=== PATIENT | male | born 1930 | race Caucasian/White ===

== ENCOUNTER → 2016-06-25 11:59 | Outpatient (CLI) | payer MEDICARE, OTHER ==
[2010-11-30 11:23] VITALS: BMI 27.0
[~2016-06-25 11:59] MED LIST: BAYER CHEWABLE81 MG PO; METOPROLOL TART25 MG PO; PLAVIX75 MG PO; ZOCOR80 MG PO
[2016-07-03 18:17] VITALS: BMI 27.3
== END | disposition home or self-care (01) ==
LOC: D.US 11:59
DX: I65.21 Occlusion and stenosis of right carotid artery (principal)

== ENCOUNTER → 2016-06-28 08:53 | Outpatient (CLI) | payer MEDICARE, OTHER ==
[2010-11-30 11:23] VITALS: BMI 27.0
[2016-07-03 18:17] VITALS: BMI 27.3
== END | disposition home or self-care (01) ==
LOC: D.CT 08:53
DX: I65.23 Occlusion and stenosis of bilateral carotid arteries (principal)

== ENCOUNTER 2016-07-03 10:40 | Inpatient (IN) | payer MEDICARE, OTHER ==
[~2016-07-03] VITALS: Ht 167.6 cm; Wt 76.8 kg
[2016-07-03] VITALS (14 sets, daily range): BP systolic 123–167; BP diastolic 42–80; Ht 167.6 cm; Wt 76.8 kg
--- NOTE | ~2016-07-03 | HEMODYNAMI ---
PATIENT:QUENTIN ALVAREZ MEDICAL RECORD: [id number] : 34 LOCATION:[facility] ADMISSION DATE: 07/03/16 Generatedon:07/03/201615:07 Patient name: QEUNTIN ALVAREZ Patient #: [id number] SSN: : 1 06/29/1929 Date of study: 07/03/2016 Page: Of Hemodynamic Procedure Report Patient Data Patient Demographics Procedure consent was obtained First Name: QUENTIN Gender: Male Last Name: ANTONIO : 1930 [facility] Initial: CARA Age: 86 year(s) Patient #: [id number] Race: Unknown Additional ID: [id number] Contact details Address: [address] [place] [address] State: [place] City: [place] Zip code: [address] Past Medical History Allergies Allergen Reaction Date Comments Reported Morphine 07/03/2016 Admission Admission Data Admission Date: 07/03/2016 Admission Time: 10:40 Height (in.): 66 BSA: 1.82 (m2) Height (cm.): 167.64 BMI: 25.82 (kg/m2) Weight (lbs.): 160 Weight (kg.): 72.57 Procedure Procedure Types Cath Procedure Peripheral Cath Diagnostic Procedure Cath Peripheral Peripheral vascular Intervention Stent Carotid Stent Procedure Description Procedure Date Procedure Date: 07/03/2016 Procedure Start Time: 13:38 Procedure Staff Name Function Mauro Fry MD Performing Physician Golden Carrasco RT Scrub Ester Martinez RN Nurse Indigo Sepulveda RT Tissue Rewinder Indigo Sepulveda RT Monitor Zion Verdugo MD Performing Physician Procedure Data Cath Procedure Fluoroscopy Diagnostic fluoroscopy Total fluoroscopy Time: time: 21.2 min 21.2 min Diagnostic fluoroscopy Total fluoroscopy dose: dose: 1325.47 mGy 1325.47 mGy Contrast Material Contrast Material Type Amount (ml) Isovue 300 105 Entry Location Entry Primary Successful Side Size Upsize Upsize Entry Closure Succ essful Closure Location (Fr) 1 (Fr) 2 (Fr) Remarks Device Remarks Femoral Right Angio-VIP artery 6Fr Diagnostic catheters Device Type Used For End Catheter Placement Cordis Aqua 5Fr Whitaker Aortic Root 125cm catheter Angiography Merit ULTRA BOLUS FLUSH 5Fr 90CM catheter Procedure Medications Medication Administration Route Dosage Oxygen NC 3 l/min Heparin Flush Bag added to field 4 bags (1000units/500ml NS) Lidocaine 1% added to field 20 Fentanyl I.V. 50 mcg Versed I.V. 1 mg Versed I.V. 0.5 mg Fentanyl I.V. 25 mcg Heparin Bolus I.V. 5000 units Benadryl I.V. 50 mg Fentanyl I.V. 25 mcg Hemodynamics Rest BSA: 1.82 (m2) O2 Consumption: Estimated: 192.33 (ml/min) O2 Consumption indexed : Estimated:105.68 (ml/min/m) Heart Rate: 49 (bpm) Snapshots Pre Cath Intra NCS Post Cath Vital Signs Time Heart Resp SPO2 NIBP (mmHg) Rhythm Pain Sedation Rate (ipm) (%) Status Level (bpm) 13:13:43 60 24 91 192/77(92) NSR 0 (11) 10(A) , No pain 13:18:15 60 23 97 193/80(119) NSR 0 (11) 10(A) , No pain 13:22:48 61 23 98 193/77(108) NSR 0 (11) 10(A) , No pain 13:27:04 60 17 97 164/72(141) NSR 0 (11) 10(A) , No pain 13:31:28 60 18 95 173/69(97) NSR 0 (11) 10(A) , No pain 13:35:52 61 14 93 186/77(144) NSR 0 (11) 10(A) , No pain 13:40:25 59 14 94 189/72(102) NSR 0 (11) 9(A) , No pain 13:44:57 59 13 98 176/75(108) NSR 0 (11) 9(A) , No pain 13:49:56 78 15 99 Measuring NSR 0 (11) 9(A) , No pain 13:51:20 71 13 96 Time NSR 0 (11) 9(A) Exceeded , No pain 13:52:59 64 12 97 176/72(118) NSR 0 (11) 9(A) , No pain 13:57:27 60 14 98 172/68(94) NSR 0 (11) 10(A) , No pain 14:01:55 59 10 96 172/68(103) NSR 0 (11) 9(A) , No pain 14:06:34 60 11 98 153/43(104) NSR 0 (11) 9(A) , No pain 14:11:33 62 15 Measuring NSR 0 (11) 9(A) , No pain 14:12:47 62 16 176/71(132) NSR 0 (11) 10(A) , No pain 14:17:15 60 12 96 191/77(106) NSR 0 (11) 9(A) , No pain 14:21:52 59 13 94 180/68(161) NSR 0 (11) 9(A) , No pain 14:26:50 59 13 95 Measuring NSR 0 (11) 9(A) , No pain 14:27:07 59 13 95 175/72(97) NSR 0 (11) 9(A) , No pain 14:31:35 60 12 96 177/75(102) NSR 0 (11) 9(A) , No pain 14:36:06 59 12 96 178/69(109) NSR 0 (11) 9(A) , No pain 14:40:34 60 12 96 174/69(117) NSR 0 (11) 9(A) , No pain 14:45:00 61 14 95 188/74(113) NSR 0 (11) 10(A) , No pain 14:49:59 70 20 94 Measuring NSR 0 (11) 9(A) , No pain 14:51:05 60 14 100 Out of NSR 0 (11) 9(A) range , No pain 14:55:35 59 10 96 202/81(113) NSR 0 (11) 9(A) , No pain 15:00:06 59 12 94 195/82(104) NSR 0 (11) 9(A) , No pain 15:04:05 No Cuff NSR 0 (11) 9(A) , No pain Medications Time Medication Route Dose Verified Delivered Reason Notes Effectiveness by by 13:23:05 Oxygen NC 3 Ester Ester Per protocol l/min King FRANSISCO Martinez RN 13:23:30 Heparin Flush added 4 Ester Ester used for Bag to bags Juan RN Juan crm architect (1000units/500ml field NS) 13:23:43 Lidocaine 1% added 20ml Ester Ester for local to vial King FRANSISCO Martinez RN anesthetic field 13:31:22 Fentanyl I.V. 50 Ester Ester headache mcg King FRANSISCO Martinez RN 13:38:15 Versed I.V. 1 mg Ester Ester for sedation King FRANSISCO Martinez RN 13:59:58 Versed I.V. 0.5 Ester Ester for sedation mg King FRANSISCO Martinez RN 14:00:04 Fentanyl I.V. 25 Ester Ester for sedation mcg King FRANSISCO Martinez RN 14:02:44 Heparin Bolus I.V. 5000 Ester Ester for units King FRANSISCO Martinez RN anticoagulation 14:14:38 Benadryl I.V. 50 mg Ester Ester for sedation King FRANSISCO Martinez RN 14:48:17 Fentanyl I.V. 25 Ester Ester sedation mcg King FRANSISCO Martinez nylon mender Log Time Note 12:24:09 Patient Weight : 160 lbs 12:24:15 Patient Height : 66 inches 12:25:24 [address] Verdugo and Dr Fry talked at length with patient and in room 2509. Risks and benefits of procedure discussed. 12:37:33 Use device set IR Diagnostic 12:38:24 TUBING, CONTRAST INJCTN HI PRES opened to sterile field. 12:38:25 Terumo TORQUE DEVICE PLASTIC .038 opened to sterile field. 12:38:26 Terumo ANGLE 260cm glide wire opened to sterile field. 12:38:27 Faizan LOPEZ 260 guide wire opened to sterile field. 12:38:28 Faizan JULIENSON 145cm guide wire opened to sterile field. 12:38:29 [place] Sci Choice PT Floppy Straight 300cm 0.014 g opened to sterile field. 12:38:29 St Percy 5FR Sheath opened to sterile field. 12:38:30 Micropuncture VSI 4FR kit opened to sterile field. 12:38:31 Sterile Angiographic Pack opened to sterile field. 12:38:32 Bag Decanter opened to sterile field. 12:38:33 Acist Manifold opened to sterile field. 12:38:34 Acist Hand Control opened to sterile field. 12:38:35 Acist Syringe opened to sterile field. 12:42:35 Copilot Bleedback Control Valve opened to sterile field. 12:42:36 Cook RAABE 6FR. 90cm guide sheath opened to sterile field. 12:42:38 - 13:08:08 Time tracking: Regular hours 13:08:28 Plan of Care:Hemodynamics will remain stable., Cardiac rhythm will remain stable., Comfort level will be maintained., Respiratory function will remain adequate., Patient/ family verbilizes understanding of procedure., Procedure tolerated without complication., Recovers from procedure without complications.. 13:08:46 Patient received from Outpatients to IR Alert and oriented. Tansferred to table in Supine position. 13:08:49 Correct patient and procedure confirmed by team. 13:08:50 Signed procedure consent form obtained from patient. 13:08:53 - 13:09:00 H&P Date Dictated: 07/03/2016 Within 30 days and on chart.. 13:09:01 Pre-procedure instructions explained to patient. 13:09:02 Pre-op teaching completed and patient verbalized understanding. 13:09:03 Family in waiting room. 13:09:06 Patient NPO since Midnight. 13:09:45 Patient allergic to Morphine 13:09:49 Is the patient allergic to Iodine/contrast media? No. 13:09:52 Is patient on blood thinner?Yes 13:09:58 ACC The patient was administered the following blood thiners : ACCAspirin, ACCPlavix 13:10:33 Patient diabetic? No. 13:10:41 - 13:10:42 ----Pre-sedation anethsthesia assessment.---- 13:10:46 Previous problem with sedation/anesthesia? No ? 13:10:49 Snore? Yes 13:10:51 Sleep apnea? No 13:10:53 Deviated septum? No 13:10:55 Opens mouth fully? Yes 13:10:57 Sticks out tongue? Yes 13:11:22 Airway obstruction? No but has pacemaker ...cad 13:11:28 Dentures? Yes out 13:11:31 - 13:11:39 Pre procedure: right dorsailis pedis pulse Doppler 13:11:44 Pre procedure: right posterior tibial pulse Doppler 13:11:48 Pre procedure: left dorsailis pedis pulse Doppler 13:11:52 Pre procedure: left posterior tibial pulse Doppler 13:12:11 IV patent on arrival in right wrist with 0.9% NaCl at [facility]. 13:12:13 - 13:12:17 ECG and BP/O2 sat monitors applied to patient. 13:12:19 Vital chart was started 13:12:37 Baseline sample Acquired. 13:12:41 Full Disclosure recording started 13:12:43 - 13:12:53 Right groin area was prepped with chlora-prep and draped in sterile fashion 13:12:58 Alarms reviewed by Roxana N. 13:12:59 Sharps counted by scrub and verified by RMichelleN. 13:12:59 - 13:23:05 Oxygen 3 l/min NC was given by Ester Martinez RN; Per protocol; 13:23:30 Heparin Flush Bag (1000units/500ml NS) 4 bags added to field was given by Ester Martinez RN; used for procedure; 13:23:43 Lidocaine 1% 20ml vial added to field was given by Ester Martinez RN; for local anesthetic; 13:31:22 Fentanyl 50 mcg I.V. was given by Ester Martinez RN; headache; 13:33:58 A Cordis Aqua 5Fr Whitaker 125cm catheter was advanced over the wire and used . 13:34:27 Physician arrived 13:35:06 --------ALL STOP TIME OUT------ 13:35:07 Final Timeout: patient, procedure, and site verified with staff and physician. All members of the team are in agreement. 13:35:22 Physical assessment completed. ASA score P 3 - A patient with severe systemic disease as per Zion Verdugo MD. 13:35:28 Sedation plan: IV Moderate Sedation Versed, Fentanyl 13:38:00 Procedure started. 13:38:05 Local anesthetic to right femoral artery with Lidocaine 1% by Zion Verdugo MD.INITIAL ACCESS ONLY 13:38:15 Versed 1 mg I.V. was given by Ester Martinez RN; for sedation; 13:44:03 [place] Sci Amplatz Super Stiff 75CM guide wire opened to sterile field. 13:45:59 A Merit ULTRA BOLUS FLUSH 5Fr 90CM catheter was advanced over the wire and used for . 13:58:45 AcelRx Pharmaceuticals [facility] 260 .035 glide wire opened to sterile field. 13:59:14 [place] Sci AMPLATZ 260CM SHORT TAPER guide wire opened to sterile field . 13:59:58 Versed 0.5 mg I.V. was given by Ester Martinez RN; for sedation; 14:00:04 Fentanyl 25 mcg I.V. was given by Ester Martinez RN; for sedation; 14:02:44 Heparin Bolus 5000 units I.V. was given by Ester Martinez RN; for anticoagulation; 14:06:09 CXI Catheter 90cm opened to sterile field. 14:14:38 Benadryl 50 mg I.V. was given by Ester Martinez RN; for sedation; 14:16:56 SPIDER EMBOLIC PROTECTION DEVICE 5MM opened to sterile field. 14:21:14 Inflation number: 1 A Dowd VIATRAC 4 x 2 x 135 balloon was prepped an d advanced across the Undefined1, then inflated to 10 CATHLEEN for 0:06 (min:sec). 14:21:42 Inflation number: 2 The Dowd VIATRAC 4 x 2 x 135 balloon was reinflated across the Undefined1, to 8 CATHLEEN for 0:10 (min:sec). 14:25:28 PROTEGE RX TAPERED 8-6MM X 30MM X 135CM stent was deployed across Undefined1 . 14:36:10 Inflation number: 3 A Dowd VIATRAC 6 x 4 x 135 balloon was prepped an d advanced across the Undefined1, then inflated to 11 CATHLEEN for 0:11 (min:sec). 14:38:36 PROTEGE 8 x 30 x 135 Stent was deployed across Undefined2 . 14:40:20 Inflation number: 1 A Dowd VIATRAC 7 x 4 x 135 balloon was prepped an d advanced across the Undefined2, then inflated to 10 CATHLEEN for 0:23 (min:sec). 14:48:17 Fentanyl 25 mcg I.V. was given by Ester Martinez RN; sedation; 14:49:40 ANGIOSEAL-VIP PLUS 6 FR opened to sterile field. 14:49:54 A sheath was inserted into the Right Femoral artery 14:49:54 Sheath removed intact; hemostasis achieved with Angio-VIP 6Fr to the Right Femoral artery. 14:49:59 Procedure ended.(Physican Out) 14:50:17 Fluoroscopy time 21.20 minutes. 14:50:28 Fluoroscopy dose: 1325.47 mGy 14:50:28 Flurop Dose total: 1325.47 14:50:33 Contrast amount:Isovue 300 105ml. 14:50:35 Sharps counted by scrub and verified by R.N. 14:50:38 Procedure and supply charges have been captured, reviewed, submitted an d are correct. 15:07:21 PERRLA, following all instructions appropriately, store keeper equal and strong, moving all four extremities to command, no facial droop, tongue midline. No neuro deficits at this time. 15:07:48 Vital chart was stopped Intervention Summary Intervention Notes Time ActionType Lesion and Equipment Action# Pressure Duration Attributes Used 14:21:14 Inflate Undefined1 Dowd 1 10 00:06 balloon VIATRAC 4 x 2 x 135 balloon 14:21:42 Reinflate Undefined1 Dowd 2 8 00:10 balloon VIATRAC 4 x 2 x 135 balloon 14:25:28 Deploy self Undefined1 PROTEGE 1 expanding RX stent TAPERED 8-6MM X 30MM X 135CM stent 14:36:10 Inflate Undefined1 Dowd 3 11 00:11 balloon VIATRAC 6 x 4 x 135 balloon 14:38:36 Deploy self Undefined2 PROTEGE 8 1 expanding x 30 x stent 135 Stent 14:40:20 Inflate Undefined2 Dowd 1 10 00:23 balloon VIATRAC 7 x 4 x 135 balloon Device Usage Item Name Manufacture Quantity Catalog Number Hospital Part Current M inimal Lot# / Charge Number Stock Stock Serial# Code TUBING, Merit 1 [id number] [id number] 5 CONTRAST Medical INJCTN HI PRES Terumo TORQUE [place] 1 [id number] 386994 549948 5 DEVICE Scientific PLASTIC .038 Terumo ANGLE Terumo 1 [id number] 869700 745468 642575 5 260cm glide wire Cook [facility] Medical 1 [id number] 159821 738175 5 [id number] [address] [facility] Medical 1 [id number] 743475 821208 [id number] guide wire [address] [facility] 5FR [facility] 1 275282 761447 399107 5 [id number] Sheath Micropuncture VSI VASCULAR 1 [id number] 459557 799058 5 VSI 4FR kit SOLUTIONS Sterile Cardinal 1 [id number] 916905 711347 5 Angiographic Health Pack Bag Decanter Microtek 1 2001S 779488 52819 434109 5 Medical Inc. Acist Acist 1 69976 685681 226418 067263 5 Zigswitch Systems Inc Acist Hand Acist 1 42396 957821 754065 361715 5 Control Wazzap Systems Inc Acist Syringe Acist 1 89617 512769 635203 228847 2 0 Wazzap Systems Inc Copilot Dowd 1 [id number] 097626 210315 661431 5 Bleedback Vascular Control Valve AcelRx Pharmaceuticals HELDER AcelRx Pharmaceuticals [facility] 1 [id number] 997682 620109 5 6FR. 90cm guide sheath [place] [facility] [place] 1 [id number] 905863 110658 444288 5 Choice PT Scientific Floppy Straight 300cm 0.014 g Cordis Aqua Cardinal 1 [id number] 718073 917227 653885 5 5Fr [facility] 125cm catheter [place] [facility] [place] 1 [id number] 653361 480779 097223 5 Amplatz Super Scientific Stiff 75CM guide wire Merit ULTRA Merit 1 [id number] 194998 792977 5 BOLUS FLUSH Medical 5Fr 90CM catheter Slyce [facility] 1 Z84088 994365 360068 5 [id number] ROADRUNNER 260 .035 glide wire [place] [facility] [place] 1 [id number] 671781 748984 253693 5 AMPLATZ 260CM Scientific SHORT TAPER guide wire CXI Catheter [facility] 1 [id number] 006877 810335 001994 5 [id number] 90cm SPIDER [facility] 1 [id number] 752467 546751 5 EMBOLIC PROTECTION DEVICE 5MM Dowd Dowd 1 [id number] 205346 275858 012938 5 VIATRAC 4 x 2 Vascular x 135 balloon PROTEGE RX Ev3 1 [id number] 643367 663576 484997 5 [id number] TAPERED 8-6MM X 30MM X 135CM stent Dowd Dowd 1 6061179-70 238305 041871 777390 5 VIATRAC 6 x 4 Vascular x 135 balloon PROTEGE 8 x Ev3 1 [id number] 256148 397111 594501 5 [id number] 30 x 135 Stent Dowd Dowd 1 [id number] 317165 117884 060491 5 VIATRAC 7 x 4 Vascular x [address]IO[address]-VIP [facility] 1 [id number] 908544 006838 5 PLUS 6 FR Signature Audit [place] Stage Time Signature Unsigned Intra-Procedure 07/03/2016 Indigo Sepulveda 3:07:44 PM RT(R) Signatures Monitor : Indigo Sepulveda RT Signature : Date : Time : [facility] [address] [place] [address]
[2016-07-03] MEDS ORDERED: PLAVIX75 MG PO (11:22)
[2016-07-03] MEDS ORDERED: BAYER CHEWABLE81 MG PO (11:23)
[2016-07-03] MEDS ORDERED: ZOCOR80 MG PO (11:24)
[2016-07-03] MEDS ORDERED: METOPROLOL TART25 MG PO (11:24)
[2016-07-03 12:25] LABS: BASOPHILS 0.5 % (0.0-2.0); EOSINOPHILS 2.6 % (0-7); HEMATOCRIT 41.2 % (42.0-54.0); IMMATURE GRANULOCYTES 0.1 % (0-5); LYMPHOCYTES 25.2 % (15-50); MCH 32.9 pg (26.0-34.0); MCV 96.9 fL (80.0-100.0); MEAN PLATELET VOLUME 9.7 fL (7.4-10.4); MONOCYTES 7.7 % (2-11); NEUTROPHILS 63.9 % (40-80); PLATELET COUNT 202 10x3/uL (130-400); RBC 4.25 10x6/uL (4.20-6.10); RDW 13.3 % (11.5-14.5); WBC 7.4 10x3/uL (4.8-10.8)
[2016-07-03 12:37] LABS: APTT 32.4 SECONDS (22.8-39.4); INR 1.1 (0.85-1.17); PROTIME 14.1 SECONDS (11.6-15.0)
[2016-07-03 12:55] LABS: CALC OSMOLALITY 284 mosm/kg (275-300); CALCIUM 8.9 mg/dL (8.5-10.1); CARBON DIOXIDE 28.8 mmol/L (21.0-32.0); CHLORIDE - SERUM 104 mmol/L (98-107); CREATININE - SERUM 0.9 mg/dL (0.6-1.3); GLUCOSE 113 mg/dL (74-106); POTASSIUM - SERUM 4.2 mmol/L (3.5-5.1); SODIUM 142 mmol/L (136-145); UREA NITROGEN 16 mg/dL (7-18); eGFR NON AFRICAN AMERICAN 85 mL/min (90-120)
--- NOTE | 2016-07-03 15:38 | NUR ---
PT ARRIVED TO ROOM ALERT AND CONVERSANT. PUPILS EQUAL AND REACTIVE 2MM. RIGHT GROIN ENTRY SITE NO EVIDENCE OF BLEEDING OR BRUISING. DRESSING IS CLEAN, DRY AND INTACT. POSTERIOR AND PEDAL PULSES WEAK, BUT PALPABLE. PT PLACED ON 2L NC FOR LOW 90'S SATURATION.
--- NOTE | 2016-07-03 16:56 | NUR ---
PT BP ELEVATED TO 170'S SYSTOLIC. NO MED ORDERS FOR PRN. SPOKE WITH DR DELATORRE. PT HAS HOME MEDICATION OF METOPROLOL 25MG BID. ASKED IF COULD GIVE A DOSE. AGREED. LET HIM KNOW PT HAD ORDERS FOR METOPROLOL 25MG XR TO START IN AM. WANTS FOR PT TO CONTINUE TO GET SAME DOSING HOME DOSING AND ASKED FOR XR VERSION TO BE DC'D.
--- NOTE | 2016-07-03 18:02 | NUR ---
AND SON AT BEDSIDE. PT AWAKE. EATEN DINNER. RIGHT GROIN SITE DRESSING INTACT. NO EVIDENCE OF BLEEDING OR HEMATOMA. ICE PACK REMOVED PER PT REQUEST FOR A BREAK FROM IT.
--- NOTE | 2016-07-03 19:30 | NUR ---
Received patient resting in bed with eyes closed, assessment completed per flowsheet. Patient is AO x4, demeanor is pleasant. eyes PERRLA @ 3mm with brisk response, sclera is white. Oral/Nasal mucosa is moist and intact, O2 sat 96% on room air. S1/S2 noted with pacemaker noted, regular pacing on telemetry. Lung sounds clear bilateral upper with slightly diminished lower, breathing is even and effortless. Abdomen is soft and non-tender to palpation, bowel sounds Active x4. Voids using urinal with 175ml clear yellow urine noted. Dressing R groin CDI, patient states slight tenderness with no swelling or bleeding noted. Full ROM all extremities with all pulses palpable, Station Manager/Pedal strength equal and bilateral. 20g PIV R Forearm noted, patent with fluids infusing. Patient denies pain or other needs at this time, all VSS and will continue to monitor.
--- NOTE | 2016-07-03 21:00 | NUR ---
No visitors at this time, patient resting in bed with eyes closed breathing is even and unlabored. HR 61 with continuous pacing noted on telemetry, oxygen sat 94% on room air. R Groin dressing CDI, no bleeding noted. Patient denies pain or other needs at this time, all VSS and will continue to monitor.
--- NOTE | 2016-07-03 22:51 | NUR ---
Reassessment complete per flowsheet, patient resting in bed with eyes closed. Breathing is even and unlabored, O2 sat 94% on room air. S1/S2 noted with constant pacing on telemetry, HR 60. No bleeding or swelling noted at cath site, dressing CDI. IV fluids completed, R forearm IV saline locked. No further needs at this time, all VSS and will continue to monitor.
--- NOTE | 2016-07-03 23:00 | NUR ---
Patient resting in bed with eyes closed, breathing is even and unlabored with O2 sat 94% on room air. No further needs at this time, all VSS and darin continue to monitor.
[2016-07-04] VITALS (7 sets, daily range): BP systolic 116–132; BP diastolic 37–51
--- NOTE | 2016-07-04 00:56 | NUR ---
Patient resting in bed with eyes open, breathing is even and effortless. O2 sensor and leads reconnected, no further needs at this time. All VSS and will continue to monitor.
--- NOTE | 2016-07-04 02:43 | NUR ---
Reassessment completed per flowsheet, patient resting in bed with eyes closed. HR 60 with constant pacing on telemetry, S1/S2 noted. Breathing is even and unlabored, O2 sat 94% on room air. R groin dressing CDI, no swelling or bleeding noted. No further needs at this time, all VSS and will continue to monitor.
--- NOTE | 2016-07-04 05:06 | NUR ---
Patient resting in bed with eyes open watching TV. Provided water and blanket at patient request, no further needs at this time. All VSS and will continue to monitor.
--- NOTE | 2016-07-04 07:00 | NUR ---
SHIFT REPORT RECEIVED. ASSUMED CARE OF PATIENT. ASSESSMENT COMPLETE. SEE FLOW SHEET FOR FINDINGS. PT AWAKE AND CONVERSANT AT THIS TIME. ASKS FOR CUP OF COFFEE. DENIES ANY OTHER NEEDS AT THIS TIME. RIGHT GROIN DRESSING INTACT. IV SALINE LOCKED.
[2016-07-04 08:03] LABS: BASOPHILS 0.5 % (0.0-2.0); EOSINOPHILS 1.3 % (0-7); HEMATOCRIT 41.4 % (42.0-54.0); HEMOGLOBIN 13.9 g/dL (13.5-17.5); IMMATURE GRANULOCYTES 0.2 % (0-5); MCH 33.2 pg (26.0-34.0); MCHC 33.6 g/dL (31.0-37.0); MCV 98.8 fL (80.0-100.0); MEAN PLATELET VOLUME 9.4 fL (7.4-10.4); MONOCYTES 6.6 % (2-11); NEUTROPHILS 73.4 % (40-80); PLATELET COUNT 192 10x3/uL (130-400); RBC 4.19 10x6/uL (4.20-6.10); RDW 13.5 % (11.5-14.5)
[2016-07-04 08:20] LABS: WBC 9.6 10x3/uL (4.8-10.8)
[2016-07-04 08:21] LABS: ALBUMIN 3.7 g/dL (3.4-5.0); ALKALINE PHOSPHATASE 51 U/L (46-116); ALT (SGPT) 29 U/L (10-68); BILIRUBIN - TOTAL 0.69 mg/dL (0.2-1.3); CALC OSMOLALITY 288 mosm/kg (275-300); CARBON DIOXIDE 32.6 mmol/L (21.0-32.0); CHLORIDE - SERUM 103 mmol/L (98-107); CREATININE - SERUM 0.9 mg/dL (0.6-1.3); GLUCOSE 193 mg/dL (74-106); POTASSIUM - SERUM 4.5 mmol/L (3.5-5.1); PROTEIN - SERUM 6.5 g/dL (6.4-8.2); SODIUM 142 mmol/L (136-145); UREA NITROGEN 16 mg/dL (7-18); eGFR NON AFRICAN AMERICAN 85 mL/min (90-120)
--- NOTE | 2016-07-04 09:50 | NUR ---
DISCHARGE INSTRUCTIONS PROVIDED TO PATIENT AND . NO NEW MEDICATIONS. CONTINUE ASA, PLAVIX, METOPROLOL AND ZOCOR. DR TSE OFFICE WILL CALL FOR FOLLOW UP FOR 1 MONTH. MAY SHOWER IN 24 HOURS. IV REMOVED TIP INTACT FROM RIGHT FOREARM.
--- NOTE | 2016-07-04 10:01 | NUR ---
Patient Name: QUENTIN ALVAREZ Admission Status: Elective Accout number: [id number] Admission Date: 07-03-2016 : 1930 Admission Diagnosis: Attending: JONN Current LOS: 1 Anticipated DC Date: 07-04-2016 Planned Disposition: Home Primary Insurance: MEDICARE A & B Is the patient Alert and Oriented? Yes * How many steps to enter\exit or inside your home? none * PCP DR CARO IS PRIMARY CARDS * Pharmacy [facility] ON [address] * Preadmission Environment Home with Family * ADLs Independent * Equipment None * List name and contact numbers for known caregivers / representatives who currently or will assist patient after discharge: KATIE ALVAREZ, SPOUSE, EDU ALVAREZ, SON, * Community resources currently utilized None * Additional services required to return to the preadmission environment? No * Can the patient safely return to the preadmission environment? Yes * Has this patient been hospitalized within the prior 30 days at any hospital? No Discharge Planning Comments: CM SPOKE WITH PATIENT'S SON, EDU, TO ASSESS DC PLAN/NEEDS. HE STATED THAT PATIENT LIVES AT HOME AND IS INDEPENDENT IN HIS CARE/ADL'S. STATED PT AMBULATES WITH NO ASSISTANCE AND THAT PT'S , KATIE ALVAREZ, WILL DRIVE HIM HOME AT D/C. HE STATED HE IS PT IS VERY HEALTHY AND GETS AROUND GREAT. STATED PT HAS NOT USED HH OR REHAB SERVICES AND HE DENIED NEED FOR ANY HH, REHAB SERVICES OR DME AT DISCHARGE. STATED PT'S HOME IS A SAFE PLACE AND PT WILL DC HOME WITH HIS AT DISCHARGE. Biology Specialist: Steph Maya RN,
== END 2016-07-04 10:17 | disposition home or self-care (01) | DRG 36 ==
LOC: D.OPS 10:40 → D.SP 13:30 → D.CVICU 16:01
PROVIDERS: General Practice; ADMIT Radiology Vascular & Interventional Radiology
PROC: 037L3DZ Dilation of Left Internal Carotid Artery with Intraluminal Device, Percutaneous Approach (ICD-10-PCS; principal; 2016-07-03 13:30)
DX: I65.22 Occlusion and stenosis of left carotid artery (principal); I10 Essential (primary) hypertension; I25.10 Atherosclerotic heart disease of native coronary artery without angina pectoris; Z87.891 Personal history of nicotine dependence

== ENCOUNTER → 2016-08-21 12:28 | Outpatient (CLI) | payer MEDICARE, OTHER ==
[2016-07-03 18:17] VITALS: BMI 27.3
== END | disposition home or self-care (01) ==
LOC: D.US 12:28
DX: I65.22 Occlusion and stenosis of left carotid artery (principal)

== ENCOUNTER 2017-03-09 08:24 | Inpatient (IN) | payer MEDICARE, OTHER ==
[~2017-03-09] VITALS: Ht 167.6 cm; Wt 70.5 kg
[2017-03-09 09:05] LABS: BASOPHILS 0.3 % (0-2); EOSINOPHILS 0.4 % (0-7); HEMATOCRIT 42.5 % (42.0-54.0); HEMOGLOBIN 14.3 g/dL (13.5-17.5); IMMATURE GRANULOCYTES 0.3 % (0-5); LYMPHOCYTES 11.7 % (15-50); MCH 31.2 pg (26.0-34.0); MCHC 33.6 g/dL (31.0-37.0); MCV 92.8 fL (80.0-100.0); MEAN PLATELET VOLUME 9.3 fL (7.4-10.4); MONOCYTES 3.7 % (2-11); NEUTROPHILS 83.6 % (40-80); PLATELET COUNT 177 10x3/uL (130-400); RBC 4.58 10x6/uL (4.20-6.10); RDW 14.4 % (11.5-14.5); WBC 11.2 10x3/uL (4.8-10.8)
[2017-03-09 09:14] LABS: APTT 27.7 SECONDS (22.8-39.4); INR 0.96 (0.85-1.17); PROTIME 12.7 SECONDS (11.6-15.0)
[2017-03-09 09:19] LABS: ALBUMIN 3.6 g/dL (3.4-5.0); ALKALINE PHOSPHATASE 72 U/L (46-116); ALT (SGPT) 31 U/L (10-68); BILIRUBIN - TOTAL 0.34 mg/dL (0.2-1.3); CALC OSMOLALITY 289 mosm/kg (275-300); CALCIUM 8.9 mg/dL (8.5-10.1); CARBON DIOXIDE 28.3 mmol/L (21.0-32.0); CHLORIDE - SERUM 107 mmol/L (98-107); CREATININE - SERUM 0.9 mg/dL (0.6-1.3); GLUCOSE 167 mg/dL (74-106); POTASSIUM - SERUM 4.1 mmol/L (3.5-5.1); PROTEIN - SERUM 6.8 g/dL (6.4-8.2); SODIUM 144 mmol/L (136-145); UREA NITROGEN 11 mg/dL (7-18); eGFR NON AFRICAN AMERICAN 85 mL/min (90-120)
--- NOTE | 2017-03-09 10:50 | NUR ---
REPORT REC'D FROM FRANSISCO LEWIS, IN ER. ROOM READY AND AWAITING PT ARRIVAL.
[2017-03-09] MEDS ORDERED: ARICEPT10 MG PO (11:30)
[2017-03-09] MEDS ORDERED: PROSCAR5 MG PO (11:30)
[2017-03-09] MEDS ORDERED: PROTONIX40 MG PO (11:30)
[2017-03-09] MEDS ORDERED: PREDNISONE20 MG PO (11:32)
--- NOTE | 2017-03-09 11:51 | NUR ---
PT REC'D TO ROOM VIA STRETCHER. AAOX4. YOCHA DEHE. SPEECH IS GARBLED/SLURRED, BUT UNDERSTANDLE. HAND JAVASCRIPT APPLICATION DEVELOPER AND FOOT PUMPS STRONG AND EQUAL BILAT. REGULAR HEART RATE AND RHYTHM. L CHEST PM NOTED. LUNG SOUNDS CLEAR AND EQUAL BILAT. BOWEL SOUNDS ACTIVE X4 QUADS. SKIN CDI. PIV TO R WRIST FREE OF REDNESS AND SWELLING. FLUSHED WITH 10CC'S OF NS. AT BEDSIDE. CAROTID DOPPLER BEING DONE NOW WELL. CURRENT VS: BP 201/73 (PRN CLONIDINE ADMINISTERED REC'D 40MG OF LABATELOL IN ER), HR 67, TEMP 97.0, RESP 17. WILL REASSESS BP. BED LOW, CALL LIGHT IN REACH, DENIES NEEDS. CPOC.
--- NOTE | 2017-03-09 12:44 | NUR ---
SPOKE WITH TRISTAN, HOSPITAL ADMINISTRATIVE ASSISTANT. 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 CURRENT BP 140/63. RESTING IN BED, AT BEDSIDE, DENIES NEEDS. CPOC.
--- NOTE | 2017-03-09 15:11 | NUR ---
3RD ATTEMPT TO CONTACT WITH HOME NUMBER. PT IS REQUESTING TO SIGN AMA PAPERS. STATING, "I HAVE AN APPOINTMENT TO GET A SKIN CANCER REMOVED AND IT WAS REALLY HARD TO GET, SO I NEED TO GO AND SIGN THAT PAPER THEY TOLD ME ABOUT IN THE EMERGENCY ROOM." TRIED TO EXPLAIN TO PT THAT HE HAS HAD A STROKE AND THAT HE NEEDS TO PRIORITIZE HIS PROBLEMS. TRIED TO EXPLAIN THAT APPOINTMENTS CAN BE RESCHEDULED, BUT PT SEEMS TO BE CONFUSED TO WHY HE NEEDS TO STAY. ALERT TO PLACE, TIME, SELF, AND SITUATION. PERSUED PT TO STAY BY TELLING HIM TO AT LEAST WAIT UNTIL HIS GET BACK.
[2017-03-09 16:55] VITALS: BP 182/71
--- NOTE | 2017-03-09 18:36 | NUR ---
SPOKE WITH REGARDING PT WANTING TO LEAVE AMA. WAS ABLE TO EXPLAIN TO PT THE NEED TO STAY AND PT IS RESTING IN BED WITH EYES CLOSED. BED LOW, CALL LIGHT IN REACH, CPOC.
[2017-03-09 18:42] VITALS: BP 201/73; Ht 167.6 cm; Wt 70.5 kg
[2017-03-09 22:33] VITALS: BP 167/63
[2017-03-10 01:36] VITALS: BP 159/57
--- NOTE | 2017-03-10 03:00 | NUR ---
PT RESTING QUIETLY, EYES CLOSED. RESP EVEN, UNLABORED. NO DISTRESS NOTED. CONTINUE TRIALS MANAGER'S PLAN OF CARE.
[2017-03-10 05:04] VITALS: BP 110/59
[2017-03-10 09:29] VITALS: BP 148/58
--- NOTE | 2017-03-10 09:30 | NUR ---
ASSESSMENT PER FLOW SHEET.PT WITHOUT DISTRESS.STATES HE WILL DC HOME TODAY. AT BEDSIDE.MONITOR FOR NEEDS
== END 2017-03-10 11:30 | disposition home or self-care (01) | DRG 69 ==
LOC: D.ER 08:24 → D.MS 10:21
PROVIDERS: Emergency Medicine; ADMIT Family Medicine
DX: G45.9 Transient cerebral ischemic attack, unspecified (principal); G81.91 Hemiplegia, unspecified affecting right dominant side; R47.81 Slurred speech; Z95.0 Presence of cardiac pacemaker

== ENCOUNTER 2017-08-19 11:18 | Outpatient (CLI) | payer MEDICARE, OTHER ==
[~2017-08-19] VITALS: Ht 170.2 cm; Wt 68.2 kg
--- NOTE | ~2017-08-19 | HEMODYNAMI ---
PATIENT:QUENTIN ALVAREZ MEDICAL RECORD: [id number] : 34 LOCATION:[facility] ADMISSION DATE: 08/19/17 Generatedon:08/19/201715:40 Patient name: QUENTIN ALVAREZ Patient #: [id number] SSN: : 1 06/29/1929 Date of study: 08/19/2017 Page: Of Hemodynamic Procedure Report Patient Data Patient Demographics Procedure consent was obtained First Name: QUENTIN Gender: Male Last Name: ANTONIO : 1930 [facility] Initial: CARA Age: 87 year(s) Patient #: [id number] Race: Unknown Additional ID: [id number] Contact details Address: [facility] [address] State: [place] City: [place] Zip code: [address] Past Medical History Allergies Allergen Reaction Date Comments Reported Morphine 07/03/2016 Other allergy 08/19/2017 morphine Admission Admission Data Admission Date: 08/19/2017 Admission Time: 11:18 Lab Results Lab Result Date: 08/19/2017 Lab Result Time: 11:45 Biochemistry Name Units Result Min Max BUN mg/dl 11 --(-*--)-- 7 18 Creatinine mg/dl 0.9 --(-*--)-- 0.6 1.3 CBC Name Units Result Min Max Hematocrit % 38 *-(----)-- 42 54 Hemoglobin g/dl 12.6 -*(----)-- 13.5 17.5 Coagulation Name Units Result Min Max INR units 1.13 --(---*)-- 0.85 1.17 PT sec 14.1 --(--*-)-- 11.6 15 Procedure Procedure Types Cath Procedure Diagnostic Procedure PPM/ICD Permanent Pacer Generator Exg. Sedation Charges Moderate Sedation up to 30 minutes Procedure Description Procedure Date Procedure Date: 08/19/2017 Procedure Start Time: 15:28 Procedure End Time: 15:37 Procedure Staff Name Function Abhijit Duncan MD Performing Physician Rivera Morrissey MD Assisting physician Jae CARL Monitor Yazmin Montenegro RT Scrub Bianka Tellez RN Nurse Procedure Data Cath Procedure Fluoroscopy Diagnostic fluoroscopy Total fluoroscopy Time: 0 time: 0 min min Diagnostic fluoroscopy Total fluoroscopy dose: 0 dose: 0 mGy mGy Contrast Material Contrast Material Type Amount (ml) Isovue 300 0 Estimated blood loss: 5 ml Procedure Complications No complications Procedure Medications Medication Administration Route Dosage Oxygen NC 2 Lidocaine 1% with added to field 20 ml Epi Bupivacaine 0.5% S.Q. 10 ml Ancef (1Gm/50ml NS) I.V.P.B 1 g Ancef Irrigation Topical 1 g (1gm/500ml NS) Versed I.V. 1 mg Fentanyl I.V. 50 mcg Versed I.V. 1 mg Fentanyl I.V. 50 mcg Hemodynamics Rest HGB: 12.6 (g/dl) Heart Rate: 65 (bpm) Snapshots Pre Cath Intra NCS Post Cath Vital Signs Time Heart Resp SPO2 etCO2 NIBP (mmHg) Rhythm Pain Sedation Rate (ipm) (%) (mmHg) Status Level (bpm) 14:34:21 65 12 96 0 183/87(131) NSR 0 (11) 10(A) , No pain 14:39:08 65 20 96 0 169/88(136) NSR 0 (11) 10(A) , No pain 14:43:53 65 15 97 0 173/84(142) NSR 0 (11) 10(A) , No pain 14:48:39 65 15 97 0 169/83(146) NSR 0 (11) 10(A) , No pain 14:53:24 65 14 97 0 161/81(117) NSR 0 (11) 10(A) , No pain 14:58:05 65 12 98 0 155/87(137) NSR 0 (11) 10(A) , No pain 15:02:45 65 16 98 0 147/82(132) NSR 0 (11) 10(A) , No pain 15:07:20 148 17 97 0 118/95(101) NSR 0 (11) 10(A) , No pain 15:12:35 64 14 97 0 174/86(136) NSR 0 (11) 10(A) , No pain 15:17:24 66 16 97 0 179/71(131) NSR 0 (11) 10(A) , No pain 15:22:09 65 13 96 0 167/79(110) NSR 0 (11) 10(A) , No pain 15:26:56 66 13 96 0 164/73(123) NSR 0 (11) 10(A) , No pain 15:31:55 57 17 97 0 Measuring NSR 0 (11) 10(A) , No pain 15:33:02 64 14 97 0 178/77(107) NSR 0 (11) 10(A) , No pain Medications Time Medication Route Dose Verified Delivered Reason Notes Effectiv eness by by 14:39:11 Oxygen NC 2 Abhijit Buffie used for l/min [facility] Tellez drapery cutter machine prn 14:39:17 Lidocaine added 20 ml Abhijit Stafford for local 1% with Epi to [facility] Morrissey MD anesthetic field 14:39:29 Bupivacaine S.Q. 10 ml Abhijit Stafford for local 0.5% [facility] Morrissey MD anesthetic 14:39:41 Ancef I.V.P.B 1 g Abhijit Cralton used for (1Gm/50ml [facility] Tellez drapery cutter machine NS) 14:39:51 Ancef Topical 1 g Abhijit Spiritism used for Irrigation [facility] Morrissey MD procedure (1gm/500ml NS) 15:01:54 Versed I.V. 1 mg Abhijit Buffie for PerlaZion Tellez RN sedation 15:01:59 Fentanyl I.V. 50 Abhijit Buffie for [facility] Tellez RN sedation 15:20:48 Versed I.V. 1 mg Abhijit Bryanie for PerlaZion Tellez RN sedation 15:20:52 Fentanyl I.V. 50 Abhijit Bryanie for [facility] Tellez RN sedation Procedure Log Time Note 14:13:59 Time tracking: Regular hours (M-F 7:00 - 5:00) 14:14:03 Plan of Care:Hemodynamics will remain stable., Cardiac rhythm will remain stable., Comfort level will be maintained., Respiratory function will remain adequate., Patient/ family verbilizes understanding of procedure., Procedure tolerated without complication., Recovers from procedure without complications.. 14:14:12 H&P Date Dictated: 08/18/2017 Within 30 days and on chart., H&P Addendum completed by physician on day of procedure. (MUST COMPLETE FOR ALL OUTPATIENTS). 14:19:53 Yazmin Montenegro RT(R) sent for patient. Start room use. 14:24:58 Patient received from Pre/Post Procedure Room to CCL 1 Alert and oriented. Tansferred to table in Supine position. 14:25:00 Warm blankets applied, and giovanny hugger turned on for patient comfort. 14:25:04 Correct patient and procedure confirmed by team. 14:25:05 Signed procedure consent form obtained from patient. 14:25:06 ECG and BP/O2 sat monitors applied to patient. 14:25:08 Pre-procedure instructions explained to patient. 14:25:08 Pre-op teaching completed and patient verbalized understanding. 14:25:09 Family in waiting room. 14:25:10 Patient NPO since Midnight. 14:25:22 Patient allergic to Other allergymorphine 14:33:27 Vital chart was started 14:33:29 Baseline sample Acquired. 14:33:33 Rhythm: paced 14:33:35 Full Disclosure recording started 14:33:48 Is the patient allergic to Iodine/contrast media? No. 14:33:49 Is patient on blood thinner?Yes 14:33:51 ACC The patient was administered the following blood thiners within the last 24 hours: ACCPlavix 14:34:07 Patient diabetic? No. 14:34:10 Previous problem with sedation/anesthesia? No ? 14:34:12 Snore? Yes 14:34:13 Sleep apnea? No 14:34:14 Deviated septum? No 14:34:14 Opens mouth fully? Yes 14:34:15 Sticks out tongue? Yes 14:34:16 Airway obstruction? No ? 14:34:18 Dentures? No ? 14:34:23 Patient pain scale 0/10 ?. 14:34:28 IV patent on arrival in left forearm with 0.9% NaCl at [facility]. 14:35:31 Lab Result : BUN 11 mg/dl 14:35:31 Lab Result : Hemoglobin 12.6 g/dl 14:35:31 Lab Result : Creatinine 0.9 mg/dl 14:35:31 Lab Result : Hematocrit 38 % 14:35:31 Lab Result : INR 1.13 units 14:35:31 Lab Result : PT 14.1 sec 14:35:33 Lab results completed and on chart. 14:35:56 Medtronic customer support representative sherrell smith present for procedure. 14:39:11 Oxygen 2 l/min prn NC was administered by Bianka Tellez RN; used for procedure; 14:39:17 Lidocaine 1% with Epi 20 ml added to field was administered by Rivera Morrissey MD; for local anesthetic; 14:39:29 Bupivacaine 0.5% 10 ml S.Q. was administered by Rivera Morrissey MD; for local anesthetic; 14:39:41 Ancef (1Gm/50ml NS) 1 g I.V.P.B was administered by Bianka Tellez RN; used for procedure; 14:39:51 Ancef Irrigation (1gm/500ml NS) 1 g Topical was administered by Rivera Morrissey MD; used for procedure; 14:59:11 Left chest area was prepped with chlora-prep and draped in sterile fashion 14:59:18 Grounding pad site Left thigh. 14:59:19 Grounding pad site free from injury. 14:59:31 Alarms reviewed by R. N. 14:59:45 Pre sharps counted by scrub and verified by RN: Sutures: 7; Sponges: 5; Stick needles: 0; Skin needles: 2; Blade: 1; Cautery: 1 14:59:54 Sharps counted by scrub and verified by R.N. 14:59:55 Physician arrived 14:59:56 --------ALL STOP TIME OUT------ 14:59:56 Final Timeout: patient, procedure, and site verified with staff and physician. All members of the team are in agreement. 15:00:00 Radha Vines APRN has scrubbed in with Dr. Morrissey for assistance. 15:00:01 Left chest site verified by team. 15:00:05 Physical assessment completed. ASA score P 2 - A patient with mild systemic disease as per Abhijit Duncan MD. 15:00:08 Sedation plan: IV Moderate Sedation Medication:Versed, Fentanyl 15:01:16 Procedure started. 15:01:54 Versed 1 mg I.V. was administered by Bianka Tellez RN; for sedation; 15::59 Fentanyl 50 mcg I.V. was administered by Bianka Tellez RN; for sedation; 15:05:00 Use device set NICKIE PPM 15:05:05 2-0 Ticron Multipack ([id number]) opened to sterile field. 15:05:10 3-0 Vicryl Single Pack [id number] opened to sterile field. 15:05:15 5-0 Monocryl PS2 [id number] opened to sterile field. 15:05:20 Cautery Tip Medical Unit Secretary opened to sterile field. 15:05:30 Medtronic Adapta PPM Dual Generator [id number] opened to sterile field. 15:05:50 Mepilex Dressing ([id number]) opened to sterile field. 15:07:10 Cautery Pushbutton Pencil opened to sterile field. 15:10:16 Lidocaine 1% was administered to left subclavicular area by Rivera Morrissey MD . 15:10:18 Incision made to left subclavicular area. 15:10:21 Generator pocket made/opened. 15:13:32 PPM Dual was removed.. 15:15:10 Generator was sutured in place with 2-0 ticron. 15:15:43 Parameters-- Generator: Mode: AAIR<=>DDDR. Lower Rate: 60bpm. Upper Rate: 110bpm. 15:16:06 Parameters--Atrial P/R Wave: 2.2mV. Current: 0.5mA; Threshold: 0.5V; Impedence: 742OHMS. 15:16:26 Parameters--Ventricular P/R Wave: 7.8mV. Current: 0.5mA; Threshold: 0.5V; Impedence: 1108OHMS. 15:20:44 Subcutaneous closure was completed with 3-0 vicryl plus. 15:20:48 Versed 1 mg I.V. was administered by Bianka Tellez RN; for sedation; 15:20:52 Fentanyl 50 mcg I.V. was administered by Bianka Tellez RN; for sedation; 15:30:04 Skin closure was completed with 5-0 monocryl. 15:30:08 Procedure ended.(Physican Out) 15:30:15 Fluoroscopy time 00.00 minutes. 15:30:18 Flurop Dose total: 0 15:30:18 Fluoroscopy dose: 0 mGy 15:30:21 Contrast amount:Isovue 300 0ml. 15:30:22 Sharps counted by scrub and verified by R.N. 15:31:01 Post sharps counted by scrub and verified by RN: Sutures: 7; Sponges: 5; Stick needles: 0; Skin needles: 2; Blade: 1; Cautery: 1 15:32:19 Insertion/operative site no bleeding no hematoma. 15:32:24 Post-op/insertion site Left Chest area dressed using a Mepilex dressing. 15:32:37 Post Procedure Pulses reassessed and unchanged 15:32:42 Post-procedure physical assessment completed. ASA score P 2 - A patient with mild systemic disease as per Abhijit Duncan MD. 15:32:46 Post procedure rhythm: unchanged. 15:32:49 Estimated blood loss: 5 ml 15:32:51 Post procedure instruction explained to patient.Patient verbalizes understanding. 15:35:57 Lt Chest incision was dressed with Mepilex dressing. 15:36:02 Patient needs reinforcement of post procedure teaching. 15:36:30 Procedure type changed to Cath procedure, Diagnostic procedure, PPM/ICD, Permanent Pacer Generator Exg., Sedation Charges, Moderate Sedation up to 30 minutes 15:36:51 Procedure and supply charges have been captured, reviewed, submitted and are correct. 15:36:54 Procedure Complication : No complications 15:36:56 Vital chart was stopped 15:36:56 See physician's report for complete and final results. 15:36:57 Report given to Pre/Post Procedure Room. 15:37:00 Patient transfered to Pre/Post Procedure Room with Stretcher. 15:37:02 Procedure ended. 15:37:02 Full Disclosure recording stopped 15:37:09 End room use (Document Last) Device Usage Item Name Manufacture Quantity Catalog Hospital Part Current Minimal Lot# / Number Charge Number Stock Stock Serial# Code Medtronic Medtronic 1 [id number] Adapta PPM EXP: Dual 2018-09-15 Generator ADDR01 2-0 Ticron Ethicon 6 [id number] 06129 067819 5 Multipack ([id number]) 3-0 Vicryl Ethicon 1 [id number] 035273 [id number] 5 Single Pack [id number] 5-0 Monocryl Ethicon 1 Y495G 036778 968322 044937 5 PS2 Y495G Cautery Tip Microtek 1 [id number] 910608 147971 606012 5 Medical Unit Secretary [employer] Inc[employer] Cautery Microtek 1 [id number] 044700 89058 [id number] 5 Pushbutton Medical Inc[employer] Pencil Mepilex Cardinal 1 213115 615395 399146 527063 5 Dressing Health (157402) Signature Audit [place] Stage Time Signature Unsigned Intra-Procedure 08/19/2017 Jae Arrington 3:40:54 PM RT(R) Signatures Monitor : Jae Arrington RT Signature : Date : Time : [address] [address]
--- NOTE | ~2017-08-19 | OP ---
PATIENT NAME: QUENTIN ALVAREZ MEDICAL RECORD: [id number] :34 LOCATION:D.[facility] ADMISSION DATE: SURGEON: ROBSON FU MD DATE OF OPERATION: 08/19/2017 PREOPERATIVE DIAGNOSES: 1. End-of-life generator. 2. Pacemaker in situ. 3. Coronary artery disease. 4. Hypertension. POSTOPERATIVE DIAGNOSES: 1. End-of-life generator. 2. Pacemaker in situ. 3. Coronary artery disease. 4. Hypertension. PROCEDURE: Left subclavian vein dual lead pacemaker generator exchange. SURGEON: Robson Fu MD REPORT OF OPERATION: The patient's left chest was prepped and draped in sterile fashion. A total of 20 mL of 1% lidocaine with epinephrine was infused into the subcutaneous tissues. A transverse skin incision was made overlying the indwelling pacemaker. Electrocautery was used to dissect down to the pacemaker. The pacemaker was then eviscerated through the wound. This was disconnected from the indwelling leads. A new pacemaker generator was affixed to the leads and placed back in the subcutaneous pouch. The subcutaneous tissues were reapproximated with interrupted 3-0 Vicryls and the skin was closed with running subcutaneous 5-0 Monocryl. COMPLICATIONS: None. CONDITION: Stable. ANESTHESIA: Local MAC. BLOOD LOSS: Minimal. TRANSINT:[id number] Voice Confirmation ID: [id number] DOCUMENT ID: [id number] ROBSON FU MD at 0841 CC: SHIKHA FIELDS [id number] DICTATION DATE: 08/19/17 1534 INFORMATION SYSTEMS SECURITY SPECIALIST: 08/19/17 1607 DEP CLI 08/19/17 [place] [id number] [place] [id number]
[~2017-08-19 11:18] MED LIST changes: +ARICEPT10 MG PO; +PREDNISONE20 MG PO; +PROSCAR5 MG PO; +PROTONIX40 MG PO
[2017-08-19 11:38] VITALS: BP 118/70; Ht 170.2 cm; Wt 68.2 kg
[2017-08-19 12:09] LABS: HEMOGLOBIN 12.6 g/dL (13.5-17.5); MCH 30.9 pg (26.0-34.0); MCHC 33.2 g/dL (31.0-37.0); MCV 93.1 fL (80.0-100.0); MEAN PLATELET VOLUME 10.2 fL (7.4-10.4); RBC 4.08 10x6/uL (4.20-6.10); RDW 15.1 % (11.5-14.5); WBC 7.9 10x3/uL (4.8-10.8)
[2017-08-19 12:12] LABS: INR 1.13 (0.85-1.17); PROTIME 14.1 SECONDS (11.6-15.0)
[2017-08-19 12:13] LABS: APTT 29.8 SECONDS (22.8-39.4)
[2017-08-19 12:17] LABS: CALC OSMOLALITY 291 mosm/kg (275-300); CALCIUM 8.5 mg/dL (8.5-10.1); CARBON DIOXIDE 30.7 mmol/L (21.0-32.0); CHLORIDE - SERUM 108 mmol/L (98-107); CREATININE - SERUM 0.9 mg/dL (0.6-1.3); GLUCOSE 137 mg/dL (74-106); POTASSIUM - SERUM 3.1 mmol/L (3.5-5.1); SODIUM 146 mmol/L (136-145); UREA NITROGEN 11 mg/dL (7-18); eGFR NON AFRICAN AMERICAN 85 mL/min (90-120)
[2017-08-19] MEDS ORDERED: HYDROCODONE-APA1 TAB PO (15:36)
== END 2017-08-19 17:00 | disposition home or self-care (01) ==
LOC: D.CATH 11:18
PROVIDERS: Internal Medicine Interventional Cardiology
DX: Z45.010 Encounter for checking and testing of cardiac pacemaker pulse generator [battery] (principal); I25.10 Atherosclerotic heart disease of native coronary artery without angina pectoris; I10 Essential (primary) hypertension; Z01.812 Encounter for preprocedural laboratory examination

== ENCOUNTER → 2017-08-28 14:07 | Outpatient (CLI) | payer MEDICARE, OTHER ==
[2017-08-19 11:38] VITALS: BMI 23.5
[~2017-08-28 14:07] MED LIST changes: +HYDROCODONE-APA1 TAB PO
== END | disposition home or self-care (01) ==
LOC: D.US 14:07
DX: I65.23 Occlusion and stenosis of bilateral carotid arteries (principal)

== ENCOUNTER 2018-07-31 10:03 | Emergency (ER) | payer MEDICARE, OTHER ==
[~2018-07-31] VITALS: Ht 170.2 cm; Wt 71.8 kg
[2018-07-31 10:08] VITALS: Ht 170.2 cm; Wt 71.8 kg
[2018-07-31 10:35] LABS: BASOPHILS 0.4 % (0-2); EOSINOPHILS 3.7 % (0-7); HEMATOCRIT 41.6 % (42.0-54.0); HEMOGLOBIN 14.6 g/dL (13.5-17.5); IMMATURE GRANULOCYTES 0.3 % (0-5); LYMPHOCYTES 28.9 % (15-50); MCH 33.5 pg (26.0-34.0); MCHC 35.1 g/dL (31.0-37.0); MCV 95.4 fL (80.0-100.0); MONOCYTES 13.2 % (2-11); NEUTROPHILS 53.5 % (40-80); PLATELET COUNT 163 10x3/uL (130-400); RBC 4.36 10x6/uL (4.20-6.10); RDW 13.7 % (11.5-14.5); WBC 7.6 10x3/uL (4.8-10.8)
[2018-07-31 10:48] LABS: ALBUMIN 3.4 g/dL (3.4-5.0); ALKALINE PHOSPHATASE 81 U/L (46-116); ALT (SGPT) 19 U/L (10-68); BILIRUBIN - TOTAL 0.58 mg/dL (0.2-1.3); CALC OSMOLALITY 289 mosm/kg (275-300); CALCIUM 8.2 mg/dL (8.5-10.1); CARBON DIOXIDE 32.9 mmol/L (21.0-32.0); CHLORIDE - SERUM 104 mmol/L (98-107); GLUCOSE 171 mg/dL (74-106); POTASSIUM - SERUM 3.2 mmol/L (3.5-5.1); PROTEIN - SERUM 6.9 g/dL (6.4-8.2); SODIUM 144 mmol/L (136-145); UREA NITROGEN 10 mg/dL (7-18); eGFR NON AFRICAN AMERICAN 75 mL/min (90-120)
[2018-07-31 10:49] LABS: APTT 29.6 SECONDS (22.8-39.4); INR 1.07 (0.85-1.17); PROTIME 13.4 SECONDS (11.6-15.0)
[2018-07-31 11:00] LABS: CKMB 1.5 U/L (0.0-3.6); CREATINE KINASE 54 UL (21-232); MAGNESIUM - SERUM 1.7 mg/dL (1.8-2.4); THYROID STIMULATING HORMONE 0.71 uIU/mL (0.36-3.74)
[2018-07-31 11:01] LABS: TROPONIN-I < 0.017 ng/mL (0.000-0.060)
[2018-07-31 12:56] VITALS: BP 198/88
== END 2018-07-31 12:59 | disposition home or self-care (01) ==
LOC: D.ER 10:03
PROVIDERS: Family Medicine
DX: I65.9 Occlusion and stenosis of unspecified precerebral artery (principal)

== ENCOUNTER 2018-08-01 08:34 | Inpatient (IN) | payer MEDICARE, OTHER ==
[~2018-08-01] VITALS: Ht 170.2 cm; Wt 67.4 kg
[2018-08-01 08:54] LABS: BASOPHILS 0.3 % (0-2); EOSINOPHILS 0.4 % (0-7); HEMOGLOBIN 15.1 g/dL (13.5-17.5); IMMATURE GRANULOCYTES 0.3 % (0-5); MCH 33.7 pg (26.0-34.0); MCV 93.8 fL (80.0-100.0); MEAN PLATELET VOLUME 9.1 fL (7.4-10.4); PLATELET COUNT 187 10x3/uL (130-400); RBC 4.48 10x6/uL (4.20-6.10); RDW 13.5 % (11.5-14.5)
[2018-08-01 09:05] LABS: APTT 29.7 SECONDS (22.8-39.4); INR 1.06 (0.85-1.17); PROTIME 13.3 SECONDS (11.6-15.0)
[2018-08-01 09:12] LABS: ALBUMIN 3.8 g/dL (3.4-5.0); ALKALINE PHOSPHATASE 82 U/L (46-116); ALT (SGPT) 19 U/L (10-68); BILIRUBIN - TOTAL 0.69 mg/dL (0.2-1.3); CALC OSMOLALITY 286 mosm/kg (275-300); CALCIUM 8.7 mg/dL (8.5-10.1); CHLORIDE - SERUM 102 mmol/L (98-107); GLUCOSE 194 mg/dL (74-106); POTASSIUM - SERUM 3.7 mmol/L (3.5-5.1); PROTEIN - SERUM 7.6 g/dL (6.4-8.2); SODIUM 142 mmol/L (136-145); UREA NITROGEN 11 mg/dL (7-18); eGFR NON AFRICAN AMERICAN 75 mL/min (90-120)
[2018-08-01 09:23] LABS: CKMB 2.4 U/L (0.0-3.6); CREATINE KINASE 94 UL (21-232); MAGNESIUM - SERUM 1.7 mg/dL (1.8-2.4); THYROID STIMULATING HORMONE 1.08 uIU/mL (0.36-3.74); TROPONIN-I < 0.017 ng/mL (0.000-0.060)
[2018-08-01 09:59] VITALS: BP 173/71
[2018-08-01 10:36] VITALS: BP 130/55
--- NOTE | 2018-08-01 10:45 | NUR ---
PT TAKING DRINKS OF WATER W/O DIFFICULTY
[2018-08-01 12:04] LABS: APPEARANCE CLEAR (CLEAR); BILIRUBIN NEGATIVE (NEGATIVE); COLOR YELLOW (YELLOW); GLUCOSE 50 mg/dL (NEGATIVE); KETONE SMALL mg/dL (NEGATIVE); NITRITE NEGATIVE (NEGATIVE); PROTEIN TRACE mg/dL (NEGATIVE); SPECIFIC GRAVITY 1.015 (1.005-1.020); UROBILINOGEN NORMAL (NORMAL)
[2018-08-01 12:05] LABS: BACTERIA FEW /hpf (NONE SEEN); MUCUS <1+ /lpf (NONE SEEN); RED CELLS - URINE 0-5 /hpf (0-5); WHITE CELLS - URINE 0-5 /hpf (0-5)
[2018-08-01 12:27] VITALS: BP 125/33
[2018-08-01 14:12] VITALS: BP 136/65
[2018-08-01 16:34] VITALS: BP 143/68
--- NOTE | 2018-08-01 17:03 | NUR ---
PT ARRIVED FROM THE ER, ALERT BUT NON-VERBAL, SPOUSE IS AT BEDSIDE. CALL LIGHT PLACED IN REACH, BED IN LOWEST POSITON WITH RAILS UP X2. WILL CONTINUE TO MONITOR AND FOLLOW PLAN OF CARE.
--- NOTE | 2018-08-01 17:10 | NUR ---
new admit from er. at bs. call light in reach. will cont. plan of care.
[2018-08-01 17:20] VITALS: BMI 25.1
--- NOTE | 2018-08-01 17:36 | NUR ---
ER DID NOT START MAG THAT WAS DUE AT 1500, I STARTED THIS WHEN PT ARRIVED TO THE FLOOR, WILL START NEXT DOSE WHEN DONE.
--- NOTE | 2018-08-01 19:15 | NUR ---
RECEIVED REPORT, WILL ASSUME CARE OF PT, ASSISTED WITH PULLING PT UP IN BED, BED IS LOW, SRX2, CALL LIGHT IN REACH, JUSTEN ALARM IS ON, WILL CONTINUE PLAN OF CARE
[2018-08-01 20:00] VITALS: BP 157/61
[2018-08-02] VITALS: BP 143/104
--- NOTE | 2018-08-02 01:21 | NUR ---
PT UP TO RESTROOM, PULLED IV OUT-RESITED 20G-RFA-1 ATTEMPT
--- NOTE | 2018-08-02 01:29 | NUR ---
I have reviewed this patient and I concur with the Shift Assessment completed by the Licensed Practical Nurse today this shift.
--- NOTE | 2018-08-02 04:27 | NUR ---
GAVE LOPRESSOR EARLY DUE TO ELEVATED BP
[2018-08-02 04:45] LABS: BASOPHILS 0.1 % (0-2); EOSINOPHILS 0.1 % (0-7); HEMATOCRIT 37.9 % (42.0-54.0); IMMATURE GRANULOCYTES 0.5 % (0-5); LYMPHOCYTES 11.5 % (15-50); MCH 32.7 pg (26.0-34.0); MCHC 34.3 g/dL (31.0-37.0); MCV 95.5 fL (80.0-100.0); MONOCYTES 9.6 % (2-11); NEUTROPHILS 78.2 % (40-80); PLATELET COUNT 180 10x3/uL (130-400); RBC 3.97 10x6/uL (4.20-6.10); RDW 13.5 % (11.5-14.5)
[2018-08-02 04:51] LABS: WBC 9.5 10x3/uL (4.8-10.8)
[2018-08-02 04:59] LABS: CALCIUM 8.1 mg/dL (8.5-10.1); CARBON DIOXIDE 30.8 mmol/L (21.0-32.0); CHLORIDE - SERUM 105 mmol/L (98-107); POTASSIUM - SERUM 3.3 mmol/L (3.5-5.1); SODIUM 142 mmol/L (136-145); UREA NITROGEN 10 mg/dL (7-18)
[2018-08-02 05:02] LABS: CALC OSMOLALITY 283 mosm/kg (275-300); CREATININE - SERUM 0.7 mg/dL (0.6-1.3); GLUCOSE 137 mg/dL (74-106); eGFR NON AFRICAN AMERICAN > 90 mL/min (90-120)
[2018-08-02 05:08] VITALS: BP 182/81
--- NOTE | 2018-08-02 07:55 | NUR ---
RESUMING PT CARE, PT LAYING IN BED WITH EYES CLOSED, RESPIRATIONS EVEN AND UNLABORED. CALL LIGHT IN REACH, SPOUSE AT BEDSIDE. WILL CONTINUE TO MONITOR AND FOLLOW PLAN OF CARE.
[2018-08-02 09:04] VITALS: BP 132/72
--- NOTE | 2018-08-02 09:37 | NUR ---
I have reviewed this patient and I concur with the Shift Assessment completed by the Licensed Practical Nurse today this shift.
[2018-08-02 16:42] VITALS: BP 211/73
[2018-08-02 20:04] VITALS: BP 183/51
--- NOTE | 2018-08-02 23:36 | NUR ---
SLEEPING, NO DISTRESS NOTICE, BED IS LOW, SRX2, JUSTEN ALARM IS ON, CALL LIGHT IN REACH, WILL CONTINUE PLAN OF CARE
[2018-08-03] VITALS (7 sets, daily range): BP systolic 148–221; BP diastolic 64–113; Ht 170.2 cm; Wt 67.4 kg
--- NOTE | 2018-08-03 04:00 | NUR ---
I have reviewed this patient and I concur with the Shift Assessment completed by the Licensed Practical Nurse today this shift.
--- NOTE | 2018-08-03 04:15 | NUR ---
SPOKE WITH DR. CRUZ ABOUT BP-217/113, HE ORDER 20MG LISINPRIL BID, CALL HOUSESUPERVISOR TO NOTIFY I NEEDED THIS MED
[2018-08-03 05:57] LABS: BASOPHILS 0.3 % (0-2); EOSINOPHILS 0.4 % (0-7); HEMATOCRIT 42.4 % (42.0-54.0); HEMOGLOBIN 14.9 g/dL (13.5-17.5); LYMPHOCYTES 17.8 % (15-50); MCH 33.3 pg (26.0-34.0); MCHC 35.1 g/dL (31.0-37.0); MCV 94.6 fL (80.0-100.0); MEAN PLATELET VOLUME 9.3 fL (7.4-10.4); MONOCYTES 12.1 % (2-11); NEUTROPHILS 68.4 % (40-80); RBC 4.48 10x6/uL (4.20-6.10); RDW 13.5 % (11.5-14.5); WBC 10.4 10x3/uL (4.8-10.8)
[2018-08-03 06:17] LABS: CALC OSMOLALITY 290 mosm/kg (275-300); CALCIUM 8.3 mg/dL (8.5-10.1); CARBON DIOXIDE 32.4 mmol/L (21.0-32.0); CHLORIDE - SERUM 103 mmol/L (98-107); CREATININE - SERUM 0.8 mg/dL (0.6-1.3); GLUCOSE 167 mg/dL (74-106); SODIUM 144 mmol/L (136-145); UREA NITROGEN 12 mg/dL (7-18); eGFR NON AFRICAN AMERICAN > 90 mL/min (90-120)
[2018-08-03 06:27] LABS: POTASSIUM - SERUM 2.6 mmol/L (3.5-5.1)
[2018-08-03 06:29] LABS: PLATELET COUNT 234 10x3/uL (130-400)
--- NOTE | 2018-08-03 08:00 | NUR ---
AM REOUNDS COMPLETED. VSS, PT CONFUSED. AT BEDSIDE. SPECIMEN CUP @ BEDSIDE TO COLLECT URINE SAMPLE. PT REFUSED SCD'S, STATES IT MAKES HIM UNCOMFORTABLE. TREAT PT K+ WITH 2OMEQ. WILL CPOC. CL IN REACH, BED IN LOW, SR UP X2.
--- NOTE | 2018-08-03 14:00 | NUR ---
PT RESTING IN BED WITH EYES CLOSED. WILL CTM.
--- NOTE | 2018-08-03 19:30 | NUR ---
RECIEVED REPORT, WILL ASSUME CARE OF PT,K+ 3.2, WILL FOLLOW EP, DENIES ANY NEEDS AT THIS TIME, BED IS LOW, SRX2, CALL LIGHT IN REACH, WILL CONTINUE PLAN OF CARE
--- NOTE | 2018-08-03 23:42 | NUR ---
FLAT CLOTHIER REPORTS PT BP-/-PT STATES HE IS MAD AND FOR ME NOT TO BRING HIM A PILL
--- NOTE | 2018-08-04 04:40 | NUR ---
I have reviewed this patient and I concur with the Shift Assessment completed by the Licensed Practical Nurse today this shift.
[2018-08-04 05:05] VITALS: BP 125/74
[2018-08-04 06:01] LABS: BASOPHILS 0.1 % (0-2); EOSINOPHILS 0.1 % (0-7); HEMATOCRIT 41.6 % (42.0-54.0); HEMOGLOBIN 14.7 g/dL (13.5-17.5); IMMATURE GRANULOCYTES 0.7 % (0-5); LYMPHOCYTES 12.6 % (15-50); MCH 33.3 pg (26.0-34.0); MCHC 35.3 g/dL (31.0-37.0); MCV 94.3 fL (80.0-100.0); MEAN PLATELET VOLUME 9.4 fL (7.4-10.4); NEUTROPHILS 74.5 % (40-80); PLATELET COUNT 227 10x3/uL (130-400); RBC 4.41 10x6/uL (4.20-6.10); RDW 13.5 % (11.5-14.5); WBC 8.9 10x3/uL (4.8-10.8)
[2018-08-04 06:27] LABS: CALC OSMOLALITY 284 mosm/kg (275-300); CALCIUM 8.7 mg/dL (8.5-10.1); CARBON DIOXIDE 33.2 mmol/L (21.0-32.0); CHLORIDE - SERUM 102 mmol/L (98-107); CREATININE - SERUM 0.7 mg/dL (0.6-1.3); GLUCOSE 134 mg/dL (74-106); POTASSIUM - SERUM 3.3 mmol/L (3.5-5.1); SODIUM 142 mmol/L (136-145); UREA NITROGEN 13 mg/dL (7-18); eGFR NON AFRICAN AMERICAN > 90 mL/min (90-120)
--- NOTE | 2018-08-04 07:00 | NUR ---
RECEIVED REPORT. ASSUMED CARE OF PATIENT. CALL LIGHT WITHIN REACH. RESTING IN BED WITH SR UP FOF SAFETY. PATIENT REFUSED IV FLUIDS, IV SITE IS SALINE LOCKED AT THIS TIME. JUSTEN MAT ON BED PATENT. TELEMETRY PATENT, PACEMAKER, PACED IN SINUS RHYTHM, RATE OF 62. NO DISTRESS.
[2018-08-04 09:17] VITALS: BP 193/69
--- NOTE | 2018-08-04 11:22 | NUR ---
RESTING IN BED, EASILY AROUSED, PATIENT AT BEDSIDE. ORAL MEDICATIONS TOLERATED WELL. NO DISTRESS.
[2018-08-04 12:27] VITALS: BP 151/75
[2018-08-04] MEDS ORDERED: LISINOPRIL10 MG PO (12:57)
[2018-08-04] MEDS ORDERED: FLORAJEN3 CAPS460 MG PO (13:00)
[2018-08-04] MEDS ORDERED: SULFAMETHOXAZOL1 TA3 PO (13:01)
--- NOTE | 2018-08-04 13:16 | NUR ---
REMOVED 20 GAUGE FROM RIGHT FOREARM. NO BLEEDING FROM SITE. CATHETER TIP INTACT. TOLERATED IV REMOVAL WELL. PATIENT IS BEING DISCHARGED TO HOME. NO DISTRESS.
--- NOTE | 2018-08-04 13:30 | NUR ---
TELEMETRY REMOVED AND RETURNED TO MONITOR STATION.
--- NOTE | 2018-08-04 14:30 | NUR ---
1415 PATIENT LEFT UNIT VIA WHEELCHAIR WITH ALL PERSONAL BELONGINGS. PATIENT DISCHARGED TO HOME. NO DISTRESS UPON LEAVING UNIT.
--- NOTE | 2018-08-04 14:30 | NUR ---
1405 DISCHARGE INSTRUCTIONS PROVIDED TO PATIENT AND HIS . PATIENT AND BOTH VERBALIZED UNDERSTANDING OF INSTRUCTIONS PROVIDED.
--- NOTE | 2018-08-04 17:05 | MORECARE ---
CASE MANAGEMENT DISCHARGE SUMMARY PATIENT: QUENTIN ALVAREZ UNIT: [id number] ADM DATE: 08/02/18 AGE: 88 : 32 SEX: M ROOM/BED: D.2106 AUTHOR: LATHA MENDOZA PHYSICIAN: REFERRING PHYSICIAN: HILLARY CRUZ MD DATE OF SERVICE: 08/04/18 Discharge Plan Patient Name: QUENTIN ALVAREZ [facility] [facility] 1930 Planned Disposition: Home Anticipated Discharge Date: 08/04/18 Discharge Date: 08/04/2018 Expected LOS: 2 Initial Reviewer: [email or web address] Initial Review Date: 08/04/2018 Generated: 08/04/18 6:05 pm DCPIA - Discharge Planning Initial Assessment Updated by [email or web address]: Ernesto Hicks on 08/04/18 5:05 pm * Is the patient Alert and Oriented? Yes * How many steps to enter\exit or inside your home? 1-O / 1-I * PCP DR. STORY * Pharmacy [facility] * Preadmission Environment Home with Family * ADLs Partial Dependent * Partial ADLs (Assistance needed) Medication Management * Equipment None * Other Equipment NO MEDICAL EQUIPMENT PROVIDER * List name and contact numbers for known caregivers / representatives who currently or will assist patient after discharge: KATIE ALVAREZ, SPOUSE, * Verbal permission to speak to the caregivers and representatives has been obtained from the patient. Yes * Community resources currently utilized None * Please name any agencies selected above. NONE * Additional services required to return to the preadmission environment? No * Can the patient safely return to the preadmission environment? Yes * Has this patient been hospitalized within the prior 30 days at any hospital? No Patient Name: QUENTIN ALVAREZ Page 10058 at 1705 All edits/amendments must be made on the electronic document DICTATION DATE: 08/04/18 170 CURVE CLEANER: ZORA 08/04/18 170 RPT#: [id number] DC DATE:08/04/18 STATUS: DIS IN [facility] [address] [place] [address] END OF REPORT
--- NOTE | 2018-08-04 17:14 | MORECARE ---
CASE MANAGEMENT DISCHARGE SUMMARY PATIENT: QUENTIN ALVAREZ UNIT: [id number] ADM DATE: 08/02/18 AGE: 88 : 32 SEX: M ROOM/BED: D.2106 AUTHOR: REJI,DOC PHYSICIAN: REFERRING PHYSICIAN: HILLARY CRUZ MD DATE OF SERVICE: 08/04/18 Discharge Plan Patient Name: QUENTIN ALVAREZ Facility: [facility]:[place] : 1930 Planned Disposition: Home Anticipated Discharge Date: 08/04/18 Discharge Date: 08/04/2018 Expected LOS: 2 Initial Reviewer: [email or web address] Initial Review Date: 08/04/2018 Generated: 08/04/18 6:14 pm Comments DCP- Discharge Planning Updated by [email or web address]: Ernesto Hicks on 08/04/18 4:[address] Patient Name: QUENTIN ALVAREZ Admission Status: ER Accout number: [id number] Admission Date: 08-02-2018 : 1930 Admission Diagnosis:APHASIA Attending: HILLARY CRUZ Current LOS: 2 Anticipated DC Date: 08-04-2018 Planned Disposition: Home Primary Insurance: MEDICARE A & B Discharge Planning Comments: CM MET WITH PT AND SPOUSE IN ROOM TO DISCUSS DISCHARGE PLANNING AND NEEDS. QUENTIN ALVAREZ provided verbal consent to discuss current and ongoing needs with/in the presence of: SPOUSE, KATIE. PT REPORTS LIVING AT HOME INDEPENDENTLY WITH HIS . PT'S SPOUSE REPORTS ASSISTING PT WITH MEDICATIONS, PT IS INDEPENDENT AT HOME OTHERWISE.. PT HAS NO MEDICAL EQUIPMENT AND NO OUTSIDE SERVICES ASSISTING IN THE HOME. CM DISCUSSED AVAILABILITY OF HOME HEALTH, REHAB SERVICES AND MEDICAL EQUIPMENT. PT DENIES DISCHARGE NEEDS, REPORTS HIS IS HERE TO PICK HIM UP FOR DISCHARGE HOME. RELIEF OPERATOR NURSE NOTIFIED. Software Systems Analyst: Ernesto Hicks DCPIA - Discharge Planning Initial Assessment Updated by [email or web address]: Ernesto Hicks on 08/04/18 5:05 pm * Is the patient Alert and Oriented? Yes * How many steps to enter\exit or inside your home? 1-O / 1-I * PCP DR. STORY * Pharmacy [facility], [facility] * Preadmission Environment Home with Family * ADLs Partial Dependent * Partial ADLs (Assistance needed) Medication Management * Equipment None * Other Equipment NO MEDICAL EQUIPMENT PROVIDER * List name and contact numbers for known caregivers / representatives who currently or will assist patient after discharge: KATIE ALVAREZ, SPOUSE, * Verbal permission to speak to the caregivers and representatives has been obtained from the patient. Yes * Community resources currently utilized None * Please name any agencies selected above. NONE * Additional services required to return to the preadmission environment? No * Can the patient safely return to the preadmission environment? Yes * Has this patient been hospitalized within the prior 30 days at any hospital? No Last DP export: 08/04/18 4:05 pm Patient Name: QUENTIN ALVAREZ Page 35090 at 1714 All edits/amendments must be made on the electronic document DICTATION DATE: 08/04/181712 MARKET RESEARCH CONSULTANT: ZORA 08/04/181712 RPT#: [id number] DC DATE:08/04/18 STATUS: DIS IN [facility] [address] [place] [address] END OF REPORT
--- NOTE | 2018-08-05 14:15 | PN ---
PATIENT:ABDI DUCKWORTH MEDICAL RECORD: [id number] [facility] AD[facility] DATE: 08/02/18 PROGRESS NOTE DATE OF SERVICE: 08/04/2018 SUBJECTIVE: Abdi Duckworth is an 88-year-old man who was admitted to the hospital a few days ago. He at that time was confused and was experiencing some nausea, vomiting, speech difficulty and difficulty swallowing. He also had some facial twitching. The patient was evaluated medically and neurologically, he is now stabilize, still confused, but scheduled to go home. I have reviewed the chart, I am not identifying any evidence of acute dangerousness with regard to suicidal or homicidal thoughts, aggressive behavior or even psychotic symptoms. The patient has a known history of dementia and apparently as per the documentation today is back to his baseline mental status. Again, he is scheduled for discharge today, so I am presuming that he will have the appropriate amount of supervision. Please clarify if I am still being asked to see him and also how I am supposed to assist. Thank you for this information and consultation. TRANSINT:[id number] Voice Confirmation ID: [id number] DOCUMENT ID: [id number] CELSO CHAWLA MD at 1415 CC: [id number] DICTATION DATE: 08/04/18 1247 MEDICAL TECHNICIANS: 08/04/18 1331 DIS IN 08/04/18 [place] [id number] [place] [address]
== END 2018-08-04 14:15 | disposition home or self-care (01) | DRG 91 ==
LOC: D.ER 08:34 → D.EDHOLD 15:15 → OBSVTIME 15:15 → D.M2 16:36
PROVIDERS: Family Medicine; ADMIT Internal Medicine Nephrology; ATTEND Internal Medicine Nephrology
DX: R47.01 Aphasia (principal); G93.41 Metabolic encephalopathy; N39.0 Urinary tract infection, site not specified; I10 Essential (primary) hypertension; I25.10 Atherosclerotic heart disease of native coronary artery without angina pectoris; F03.90 Unspecified dementia, unspecified severity, without behavioral disturbance, psychotic disturbance, mood disturbance, and anxiety; Z95.0 Presence of cardiac pacemaker; R25.3 Fasciculation; R13.10 Dysphagia, unspecified

== ENCOUNTER → 2018-10-08 15:45 | Outpatient (CLI) | payer MEDICARE, OTHER ==
[2018-08-03 12:59] VITALS: BMI 23.2
[~2018-10-08 15:45] MED LIST changes: +FLORAJEN3 CAPS460 MG PO; +LISINOPRIL10 MG PO; +SULFAMETHOXAZOL1 TA3 PO
== END | disposition home or self-care (01) ==
LOC: D.US 14:30
PROVIDERS: ATTEND Internal Medicine Cardiovascular Disease
DX: I65.23 Occlusion and stenosis of bilateral carotid arteries (principal)